=== PATIENT | male | born 1970 | race Caucasian/White ===

== ENCOUNTER 2016-10-31 13:02 | Emergency (ER) | payer BC ==
[~2016-10-31] VITALS: Ht 190.5 cm; Wt 96.4 kg
[2016-10-31 13:07] VITALS: BP 140/92; TEMP 99
[2016-10-31] MEDS ORDERED: TOPROL XL 25MG25 MG PO (13:27)
[2016-10-31] MEDS ORDERED: HCTZ 25MG TAB25 MG PO (13:27)
[2016-10-31] MEDS ORDERED: NORCO 325 MG-7.1 TAB PO (14:35)
[2016-10-31] MEDS ORDERED: MEDROL 4MG DOSPA4 MG PO (14:35)
[2016-10-31 14:40] VITALS: PULSE 69
== END 2016-10-31 14:44 | disposition other institution (70) ==
LOC: COL.ER 13:02
DX: M54.31 Sciatica, right side (principal); I10 Essential (primary) hypertension
CPT/HCPCS: J1885; J2360